=== PATIENT | male | born 1960 | race Caucasian/White ===

== ENCOUNTER 2024-07-29 07:03 | Inpatient (IN) | payer OTHER ==
[~2024-07-29] VITALS: Ht 167.6 cm; Wt 74.6 kg
[2024-07-29 10:21] VITALS: BP 160/86
[2024-07-29] MEDS ORDERED: LORazepam 2 MG/ML VIAL IM PRN (11:35)
[2024-07-29] MEDS ORDERED: LORazepam 1 MG TAB PO PRN (11:35)
[2024-07-29] MEDS ORDERED: Ziprasidone Mesylate 20 MG VIAL IM PRN (11:40)
[2024-07-29] MEDS ORDERED: Water, Sterile 10 ML VIAL IM PRN (11:40)
[2024-07-29] MEDS ORDERED: ASPIRIN ADULT L81 M2 PO (11:42)
[2024-07-29] MEDS ORDERED: METFORMIN HYDR500 MG PO (11:45)
[2024-07-29] MEDS ORDERED: QUETIAPINE FUMA25 M1 PO (11:46)
[2024-07-29] MEDS ORDERED: QUETIAPINE FUMA50 M1 PO (11:47)
[2024-07-29] MEDS ORDERED: DIVALPROEX SODIUM 125 MG CAP PO SCH (13:00)
[2024-07-29 14:00] VITALS: BP 160/86
[2024-07-29] MEDS ORDERED: MG-AL HYDROXIDE/SIMETICONE 30 ML UDC PO PRN (16:40)
[2024-07-29] MEDS ORDERED: Magnesium Hydroxide 30 ML UDC PO PRN (16:40)
[2024-07-29] MEDS ORDERED: ACETAMINOPHEN 325 MG TAB PO PRN (16:40)
[2024-07-29] MEDS ORDERED: Menthol/Zinc Oxide 4 GM THIN T PRN (17:00)
[2024-07-29] MEDS ORDERED: RISPERIDONE 1 MG TAB PO SCH (21:00)
[2024-07-30 08:00] VITALS: BP 136/86
[2024-07-30] MEDS ORDERED: RISPERIDONE 0.5 MG TAB PO SCH (09:00)
[2024-07-30 09:42] LABS: HEMATOCRIT 43.2 % (42.0-52.0); MEAN CELL VOLUME 90.8 fl (80.0-94.0); MEAN CORPUSCULAR HGB 29.2 pg (27.0-31.0); MEAN CORPUSCULAR HGB CONC 32.2 g/dl (33.0-37.0); MEAN PLATELET VOLUME 10.9 fl (9.6-12.3); PLATELET COUNT AUTOMATED 256 10*3/uL (130-400); RED BLOOD COUNT 4.76 10*6/uL (4.50-5.90); RED CELL DISTRI WIDTH 12.7 % (0-14.5); WHITE BLOOD COUNT 8.7 10*3/uL (4.8-10.8)
[2024-07-30 09:46] LABS: MANUAL DIFF REFLEX YES
[2024-07-30] MEDS ORDERED: PALIPERIDONE 1.5 MG PO SCH (10:00)
[2024-07-30 10:27] LABS: BASOPHILS 1 % (0-1); TOTAL CELLS COUNTED 100 #CELLS
[2024-07-30 10:30] LABS: ALKALINE PHOSPHATASE 86 U/L (46-116); BUN 13 mg/dl (9-23); CHLORIDE 108 mmol/L (98-107); CHOLESTEROL 191 mg/dL (<200); LDL CHOLESTEROL 123 mg/dL (9-159); PLATELET SUFFICIENCY NORMAL (NORMAL); POTASSIUM 3.6 mmol/L (3.4-5.1); SGPT/ALT 16 U/L (5-49); TOTAL PROTEIN 7.3 gm/dL (6.0-8.0); TRIGLYCERIDES 122 mg/dl (<150); VITAMIN D, 25-HYDROXY 26.1 ng/mL (30-100)
[2024-07-30 14:00] VITALS: BP 136/86
== END 2024-07-30 17:15 | disposition home or self-care (01) | DRG 751 ==
LOC: 3N 07:03
PROVIDERS: ADMIT Psychiatry & Neurology Psychiatry; ATTEND Psychiatry & Neurology Psychiatry
PROC: GZHZZZZ Group Psychotherapy (ICD-10-PCS; principal; 2024-07-29)
PROC: GZ51ZZZ Individual Psychotherapy, Behavioral (ICD-10-PCS; 2024-07-29)
PROC: GZ56ZZZ Individual Psychotherapy, Supportive (ICD-10-PCS; 2024-07-29)
DX: F23 Brief psychotic disorder (principal); F22 Delusional disorders; F03.90 Unspecified dementia, unspecified severity, without behavioral disturbance, psychotic disturbance, mood disturbance, and anxiety; E11.69 Type 2 diabetes mellitus with other specified complication